=== PATIENT | female | born 1945 | race Caucasian/White ===

== ENCOUNTER → 2020-04-22 | Outpatient (CLI) | payer MEDICARE | END | disposition home or self-care (01) | LOC: ROC 04-10 09:07 | PROVIDERS: ATTEND Radiology Radiation Oncology | DX: D32.0 Benign neoplasm of cerebral meninges (principal); I10 Essential (primary) hypertension; G47.33 Obstructive sleep apnea (adult) (pediatric); Z85.3 Personal history of malignant neoplasm of breast | CPT/HCPCS: G0463 ==

== ENCOUNTER → 2020-04-29 | Outpatient (CLI) | payer MEDICARE ==
[~2020-04-29] MED LIST: GADOTERATE 10 MMOL/20 ML SYR ONE
== END | disposition home or self-care (01) ==
LOC: CFH 12:06
PROVIDERS: ATTEND Radiology Radiation Oncology
DX: D32.0 Benign neoplasm of cerebral meninges (principal)
CPT/HCPCS: 70553; A9575

== ENCOUNTER → 2020-07-28 | Outpatient (CLI) | payer MEDICARE | END | disposition home or self-care (01) | LOC: ROC 07:56 | PROVIDERS: ATTEND Radiology Radiation Oncology | DX: C70.0 Malignant neoplasm of cerebral meninges (principal) | CPT/HCPCS: G0463-95 ==

== ENCOUNTER 2020-10-29 08:23 | Outpatient (CLI) | payer MEDICARE | END 2020-10-29 23:59 | disposition home or self-care (01) | LOC: ROC 08:23 | PROVIDERS: ATTEND Radiology Radiation Oncology | DX: Z08 Encounter for follow-up examination after completed treatment for malignant neoplasm (principal); Z85.841 Personal history of malignant neoplasm of brain; Z85.3 Personal history of malignant neoplasm of breast | CPT/HCPCS: G2012; G2251 ==

== ENCOUNTER 2021-01-28 08:00 | Outpatient (CLI) | payer MEDICARE | END 2021-01-28 23:59 | disposition home or self-care (01) | LOC: ROC 08:00 | PROVIDERS: ATTEND Radiology Radiation Oncology | DX: Z08 Encounter for follow-up examination after completed treatment for malignant neoplasm (principal); C70.0 Malignant neoplasm of cerebral meninges | CPT/HCPCS: G2251 ==

== ENCOUNTER → 2021-04-27 | Outpatient (CLI) | payer MEDICARE | END | disposition home or self-care (01) | LOC: ROC 08:46 | PROVIDERS: ATTEND Radiology Radiation Oncology | DX: Z08 Encounter for follow-up examination after completed treatment for malignant neoplasm (principal); C70.0 Malignant neoplasm of cerebral meninges | CPT/HCPCS: G2251 ==